=== PATIENT | female | born 1965 | race Caucasian/White ===

== ENCOUNTER → 2017-12-10 | Outpatient (CLI) | payer OTHER | LOC: M LRY 12:41 | DX: R05 Cough (principal) ==

== ENCOUNTER → 2018-06-13 | Outpatient (CLI) | payer OTHER | LOC: M LRY 18:25 | DX: S99.921A Unspecified injury of right foot, initial encounter (principal); M77.31 Calcaneal spur, right foot; X58.XXXA Exposure to other specified factors, initial encounter; Y92.9 Unspecified place or not applicable | CPT/HCPCS: 73630; G0463 ==

== ENCOUNTER → 2019-07-31 | Outpatient (CLI) | payer OTHER ==
--- NOTE | 2019-07-31 15:28 | REP ---
Left hand series: Five views. History: Pain. Hyperextension injury. Findings: There is osteoarthritic spurring at the first carpometacarpal articulation mild in degree. There is IP joint spurring at the thumb. Mild osteoarthritic spurring is seen at the index, long, and small finger DIP joints as well. No fracture is seen. Impression: Osteoarthritic changes as noted above. No fracture seen. Electronically Signed by Inderjit Gómez MD 07/31/2019 03:19 P
== END ==
LOC: M LRY 15:01
PROVIDERS: ATTEND Physician Assistant
DX: M19.042 Primary osteoarthritis, left hand (principal); M79.642 Pain in left hand; S69.92XA Unspecified injury of left wrist, hand and finger(s), initial encounter; X50.0XXA Overexertion from strenuous movement or load, initial encounter; Y92.9 Unspecified place or not applicable
CPT/HCPCS: 73130; G0463